=== PATIENT | female | born 1995 | race African-American/Black ===

== ENCOUNTER 2022-12-18 15:06 | Outpatient (CLI) | payer OTHER, SELFPAY ==
--- NOTE | ~2022-12-18 | MR_ITS ---
EXAMINATION: MR shoulder LT wo con DATE: 12/18/2022 15:45 INDICATION: Tendinitis of left shoulder. Left shoulder pain. TECHNIQUE: Magnetic resonance imaging (MRI) of the left shoulder was performed without intravenous co ntrast. Sequences included axial PD-weighted FS FSE, coronal oblique PD-weighted FS FSE and T2-weight ed FS FSE, and sagittal oblique T2-weighted FS FSE and T1-weighted FSE. COMPARISON: None. FINDINGS: Coracoacromial arch: The acromion undersurface is curved in morphology (type II). There is a mesoacromial os acromiale. Th e acromioclavicular joint is normal. There is a physiologic volume of fluid in subacromial/subdeltoid bursa. Rotator cuff: Supraspinatus tendon is normal. There is mild infraspinatus tendinopathy. Teres minor tendon is jennifer l. Subscapularis tendon is normal. There is no fatty atrophy of the rotator cuff muscle bellies. Biceps tendon and glenoid labrum: Biceps tendon is in bicipital groove. Intra-articular biceps tendon is normal. There is a tear of pos terior inferior labrum from 7:00 to 8:00. There is a 2.6 x 0.9 x 3.2 cm paralabral cyst. Fluid: There is no glenohumeral joint effusion. Bones/cartilage: Glenoid cartilage is normal. Humeral head cartilage is normal. IMPRESSION: 1. Tear of posterior inferior labrum with 2.6 x 0.9 x 3.2 cm paralabral cyst. Reviewed, dictated and finalized at location A. S [facility]
== END 2022-12-18 15:07 ==
LOC: MICIMG 15:10
PROVIDERS: PCP Physician Assistant; Visit Provider Orthopaedic Surgery
DX: M77.8 Other enthesopathies, not elsewhere classified (principal); S43.492A Other sprain of left shoulder joint, initial encounter; X58.XXXA Exposure to other specified factors, initial encounter
CPT/HCPCS: 73221